=== PATIENT | female | born 1950 | race Caucasian/White ===

== ENCOUNTER → 2016-04-27 | Outpatient (CLI) | payer OTHER ==
[2016-04-27 16:56] LABS: CALCIUM 10.1 mg/dL (8.7-10.7); POTASSIUM 5.2 meq/L (3.8-5.2)
== END ==
LOC: MOB LAB 15:30
PROVIDERS: ATTEND Nurse Practitioner
DX: I10 Essential (primary) hypertension (principal); J44.0 Chronic obstructive pulmonary disease with (acute) lower respiratory infection; E87.1 Hypo-osmolality and hyponatremia; F17.210 Nicotine dependence, cigarettes, uncomplicated
CPT/HCPCS: 36415; 80048

== ENCOUNTER → 2016-06-29 | Outpatient (CLI) | payer OTHER | LOC: MOB LAB 13:27 | PROVIDERS: ATTEND Nurse Practitioner | DX: R53.83 Other fatigue (principal); I10 Essential (primary) hypertension; E66.01 Morbid (severe) obesity due to excess calories; F17.210 Nicotine dependence, cigarettes, uncomplicated | CPT/HCPCS: 36415; 84443 ==